=== PATIENT | male | born 1960 | race Caucasian/White ===

== ENCOUNTER 2018-06-30 16:17 | Emergency (ER) | payer MEDICAID, OTHER ==
[2018-06-30] MEDS ORDERED: fentaNYL 100 MCG/2 ML SDV IM ONE (16:36)
--- NOTE | 2018-06-30 16:42 | EDM.PDOC ---
ED HPI GENERAL MEDICAL PROBLEM - General Chief Complaint: Lower Extremity Injury/Pain Stated Complaint: FELL OFF THE ROOF SHOVELING Time Seen by Provider: 06/30/18 16:33 Source of Information: Reports: Patient, Family, RN Notes Reviewed History Limitations: Reports: No Limitations - History of Present Illness INITIAL COMMENTS - FREE TEXT/NARRATIVE: 57-year-old gentleman presents emergency department today after a fall this was at home estimate 10 foot landed on concrete happened about 2 hours prior he landed on his feet he is complaining of right ankle pain he cannot bear weight no other complaints at this time Right Wrist Pain Score (Numeric/FACES): 5 - Related Data Allergies Allergy/AdvReac Type Severity Reaction Status Date / Time venom-honey bee Allergy UNKNOWN Verified 06/30/18 16:23 [bee venom (honey bee)] Home Meds: Home Meds FLUoxetine HCl [Fluoxetine] 40 mg PO DAILY 06/30/18 [History] Past Medical History HEENT History: Reports: Impaired Vision Psychiatric History: Reports: Depression - Infectious Disease History Infectious Disease History: Reports: Chicken Pox, Measles, Mumps - Past Surgical History Head Surgeries/Procedures: Reports: None HEENT Surgical History: Reports: None Musculoskeletal Surgical History: Reports: Other (See Below) Other Musculoskeletal Surgeries/Procedures:: rt thumb surgery and left foot Social & Family History - Tobacco Use Smoking Status *Q: Never Smoker Second Hand Smoke Exposure: No - Caffeine Use Caffeine Use: Reports: Coffee - Recreational Drug Use Recreational Drug Use: No Review of Systems - Review of Systems Review Of Systems: See Below Musculoskeletal: Reports: Joint Pain (Ankle pain) Skin: Reports: No Symptoms Neurological: Reports: No Symptoms ED EXAM, GENERAL - Physical Exam Exam: See Below Free Text/Narrative:: Examination of the right ankle I do appreciate a deformity there is some edema noted as well he is exquisitely tender to touch in this area is no tenderness at the knee no tenderness at the hip pedal pulse is +2 he has limited range of motion digits secondary to pain sensation is intact Exam Limited By: No Limitations General Appearance: Alert, WD/WN, No Apparent Distress Respiratory/Chest: No Respiratory Distress Course - Vital Signs Last Recorded V/S: Last Vital Signs Temp 98.2 F 06/30/18 16:23 Pulse 68 06/30/18 16:23 Resp 16 06/30/18 16:23 BP 111/63 06/30/18 16:23 Pulse Ox 97 06/30/18 16:23 - Orders/Labs/Meds Orders: Active Orders 24 hr Category Date Time Status Ankle Min 3V Rt [CR] Stat Exams 06/30/18 16:36 Taken Meds: Medications Discontinued Medications Generic Name Dose Route Start Last Admin Trade Name Ángel PRN Reason Stop Dose Admin Fentanyl 50 mcg 06/30/18 16:36 06/30/18 16:42 Sublimaze IM 06/30/18 16:37 50 mcg ONETIME ONE Administration Departure - Departure Time of Disposition: 17:21 Disposition: Home, Self-Care 01 Condition: Fair Clinical Impression: Right calcaneal fracture Qualifiers: Encounter type: initial encounter Calcaneus location: unspecified portion of calcaneus Fracture type: closed Fracture alignment: nondisplaced Qualified Code( s): S92.001A - Unspecified fracture of right calcaneus, initial encounter for closed fracture - Discharge Information Referrals: Lance Helms [facility] [Primary Care Provider] - Forms: ED Department Discharge Additional Instructions: Please remain in the boot and crutches nonweightbearing, use hydrocodone as needed for pain control, please follow-up with orthopedics - My Orders Last 24 Hours: My Active Orders 06/30/18 16:36 Ankle Min 3V Rt [CR] Stat - Assessment/Plan Last 24 Hours: My Active Orders 06/30/18 16:36 Ankle Min 3V Rt [CR] Stat Plan: Assessment Acuity = acute Site and laterality = right calcaneus fracture Etiology = secondary to fall 10 feet Manifestations = none Location of injury = Home Lab values = radiology read suspicious for calcaneus fracture Plan he is placed in a walking boot and crutches with an appointment with orthopedics the next couple days, hydrocodone 5/325 one tab by mouth every 6 hours when necessary for pain total #10 This note was dictated using [employer] voice recognition software please call with any questions on syntax or grammar.
--- NOTE | 2018-07-03 14:43 | CRLCR ---
Final Report: Indication: Fall. Pain. Technique: Three views of the right ankle were obtained. Comparison: None Findings: A suspected calcaneal fracture is identified. A plantar calcaneal spur is identified. Ankle mortise intact. Talar dome is intact. Impression: Suspected calcaneal fracture. Dictated by Radha Jensen MD @ Jun 30 2018 5:11PM (Electronic Signature) MTDD
== END 2018-06-30 17:47 | disposition home or self-care (01) ==
LOC: JP.ED 16:17
DX: S92.001A Unspecified fracture of right calcaneus, initial encounter for closed fracture (principal); F32.9 Major depressive disorder, single episode, unspecified; Z91.030 Bee allergy status; Z79.899 Other long term (current) drug therapy; W17.89XA Other fall from one level to another, initial encounter
CPT/HCPCS: 73610; 96372; 99284; J3010

== ENCOUNTER 2018-07-13 08:48 | Day surgery (SDC) | payer MEDICAID ==
[2018-07-13] MEDS ORDERED: ceFAZolin 1 GM in Premix Bag 1 BAG IV ONE (09:30)
[2018-07-13] MEDS ORDERED: ceFAZolin 1 GM Vial IM ONE (09:30)
[2018-07-13] MEDS ORDERED: Sodium Chloride 0.9% 1,000 ML IV SCH (09:45)
[2018-07-13] MEDS ORDERED: Bupivacaine 0.5% 30 ML SDV ONE (11:34)
[2018-07-13] MEDS ORDERED: fentaNYL 250 MCG/5 ML SDV ONE (12:00)
[2018-07-13] MEDS ORDERED: Succinylcholine 200 MG/10 ML MDV ONE (12:01)
[2018-07-13] MEDS ORDERED: Propofol 200 MG/20 ML SDV ONE (12:01)
[2018-07-13] MEDS ORDERED: Dexamethasone 4 MG/ML SDV ONE (12:01)
[2018-07-13] MEDS ORDERED: Glycopyrrolate 0.2 MG/ML 5 ML MDV ONE (12:01)
[2018-07-13] MEDS ORDERED: Neostigmine Methylsulfate 1 MG/ML 5 ML Syringe ONE (12:01)
[2018-07-13] MEDS ORDERED: Ondansetron 4 MG/2 ML SDV ONE (12:01)
[2018-07-13] MEDS ORDERED: Rocuronium 50 MG/5 ML Vial ONE (12:01)
[2018-07-13] MEDS ORDERED: fentaNYL 100 MCG/2 ML SDV ONE (13:00)
[2018-07-13] MEDS ORDERED: Morphine 2 MG/ML Syringe IVPUSH ONE (14:31)
[2018-07-13] MEDS ORDERED: Acetaminophen/oxyCODONE 325-5 MG Tab PO PRN (15:06)
--- NOTE | 2018-07-23 09:58 | PCM.OPNOTE ---
- General Post-Op/Procedure Note Date of Surgery/Procedure: 07/13/18 Operative Procedure(s): Open reduction and internal fixation right calcaneus Findings: Comminuted, displaced, intra-articular right calcaneus fracture Pre Op Diagnosis: Comminuted , displaced right calcaneus fracture Post-Op Diagnosis: Same Anesthesia Technique: General ET Tube Primary Surgeon: Bartolome HUGHES in mLs: 20 Complications: None Condition: Good Free Text/Narrative:: Indications: Mr. Chavarria is a 57-year-old gentleman who sustained an injury to his left foot in a fall from his roof. X-rays and CT scan reveal a displaced intra- articular fracture of the right calcaneus. This was approximately 2 weeks ago. He has been working on elevation to minimize swelling. Now presents for open reduction and internal fixation. Swelling is down considerably and skin is in good condition for surgery. Risks, benefits and potential complications of the procedure were discussed and he agrees to proceed. Procedure: After adequate anesthesia was obtained patient was placed supine with a bump under the right hip. The right foot and leg were prepped and draped in a sterile fashion. Leg was exsanguinated and tourniquet inflated to 250 mg of mercury pressure. Incision was made over the lateral aspect of the foot starting above the medial malleolus just anterior to the Achilles tendon. This was carried straight distally to just above the heel pad and curved along the line of the heel pad anteriorly. With minimal manipulation of the skin full- thickness flap was then created down to the calcaneus. Standard approximately taking care to avoid the sural nerve. Section carried out over the fracture to the subtalar joint. A K wire was then placed up into the fibula and used to retract the flap to minimize handling. A second K wire was drilled into the talus and also used for retraction more anteriorly. A Schanz screw was placed into the calcaneus and the main body of the tuberosity. This was used to manipulate the fracture and start length. The lateral calcaneal wall fragment was removed and placed on the back table. This allowed access to the articular surface. Relating the main body fragment with the Schanz screw and a [place] elevator was placed into the fracture and used 2 maneuver the fragments into position restoring the medial wall. The lateral fragment was then cleared of hematoma and reduced into position. This was held temporarily with a K wire. A 4.0 screw was then placed over drilling the near cortex to provide lag compression across the articular surface. Reduction of the articular surface was confirmed by palpation with a [place]. A Synthes calcaneal specialty plate was then selected. It was positioned over the lateral aspect and position confirmed using C-arm. This was temporarily held with a threaded pin. Additional fixation was then obtained with screws through the plate. These were placed in compression fashion with excellent purchase. Final position of the screws was evaluated with C-arm. One screw was proud medially and this was replaced with a shorter screw through a different screw hole in the plate. Final position was again confirmed. Wound was then irrigated. 0 Vicryl sutures on pop-off needles were then used, placing multiple sutures through the periosteal tissue of the flap. Once all sutures had been placed these were then tied down in succession. Sutures were cut. Skin was then closed with 2-0 Vicryl and 3-0 nylon was used in mattress fashion for the skin. A well-padded AO plaster splint was then applied with the foot in neutral position. The patient tolerated the procedure well and there were no complications was taken from the operating room in stable condition.
== END 2018-07-13 16:45 | disposition home or self-care (01) ==
LOC: JP.SDS 08:48
PROVIDERS: ATTEND Specialist
DX: S92.061A Displaced intraarticular fracture of right calcaneus, initial encounter for closed fracture (principal); W13.2XXA Fall from, out of or through roof, initial encounter; Z91.030 Bee allergy status
CPT/HCPCS: 28415; 36415; 80053; 85027; A9270; C1713; C1776; J0690; J1100; J2270; J2405; J2704; J2710; J3010; J3490; J7030; J0330

== ENCOUNTER 2019-06-23 07:24 | Day surgery (SDC) | payer MEDICAID ==
[2019-06-23] MEDS ORDERED: Lactated Ringers 1,000 ML IV SCH (07:45)
[2019-06-23] MEDS ORDERED: Nozin Nasal Sanitizer NASBOTH ONE (07:45)
[2019-06-23] MEDS ORDERED: ceFAZolin 2 GM in Premix Bag 1 BAG IV ONE (08:00)
[2019-06-23] MEDS ORDERED: fentaNYL 250 MCG/5 ML SDV ONE (10:27)
[2019-06-23] MEDS ORDERED: Rocuronium 50 MG/5 ML Vial ONE (10:27)
[2019-06-23] MEDS ORDERED: Neostigmine Methylsulfate 1 MG/ML 5 ML Syringe ONE (10:27)
[2019-06-23] MEDS ORDERED: Dexamethasone 4 MG/ML SDV ONE (10:27)
[2019-06-23] MEDS ORDERED: Glycopyrrolate 0.2 MG/ML 5 ML MDV ONE (10:27)
[2019-06-23] MEDS ORDERED: Ondansetron 4 MG/2 ML SDV ONE (10:27)
[2019-06-23] MEDS ORDERED: Propofol 200 MG/20 ML SDV ONE (10:27)
[2019-06-23] MEDS: Bupivacaine 0.5% 50 ML MDV ONE ×2 (11:37→12:17)
[2019-06-23] MEDS ORDERED: Lactated Ringers 1,000 ML ONE (12:09)
--- NOTE | 2019-06-23 12:38 | CR ---
Fluoro Up To 1Hr CLINICAL HISTORY: Hardware removal FINDINGS: 3 fluoroscopic spot film images were obtained in the or for the use of the surgeon IMPRESSION: C-arm images as above
[2019-06-23] MEDS ORDERED: Ketorolac 60 MG/2 ML SDV IM ONE (12:44)
[2019-06-23] MEDS ORDERED: Morphine 2 MG/ML Syringe IVPUSH ONE (12:45)
[2019-06-23] MEDS ORDERED: Acetaminophen/oxyCODONE 325-5 MG Tab PO PRN (13:24)
--- NOTE | 2019-07-05 21:48 | OR ---
DATE OF PROCEDURE: 06/23/2019 SURGEON: Bartolome Markham MD PREOPERATIVE DIAGNOSES: 1. Painful retained hardware, right foot. 2. Posttraumatic arthritis, subtalar joint, right foot. POSTOPERATIVE DIAGNOSES: 1. Painful retained hardware, right foot. 2. Posttraumatic arthritis, subtalar joint, right foot. PROCEDURE: Removal of hardware, right calcaneus and arthrodesis, subtalar joint. ANESTHESIA: General. INDICATIONS: Geovani is a 58-year-old gentleman who sustained an intra-articular fracture of the right calcaneus approximately 1 year ago. He underwent open reduction and internal fixation. He went on to the heal the fracture, but has developed persistent pain and evidence of posttraumatic collapse of the subtalar joint, particularly posteriorly. He now presents for removal of hardware and subtalar fusion. Risks, benefits and potential complications of the procedure were discussed. DESCRIPTION OF PROCEDURE: After adequate anesthesia was obtained, patient placed in the lateral decubitus position and secured with a miller bag positioner. All bony prominences were well padded. The right leg was then prepped and draped in a sterile fashion with a tourniquet about the upper thigh. Leg was exsanguinated and tourniquet inflated to 300 mmHg pressure. Previous incision was utilized in the lateral aspect of the hindfoot, carried down full thickness to the bone and elevated as a full-thickness flap over the calcaneus. Elevator used to expose the hardware. The screws and plate were then removed without difficulty. Two K-wires were placed into the talus and used as retractors to avoid excessive trauma to the skin flap. Subtalar joint was identified, which did show fairly significant collapse predominantly posteriorly. Using a combination of curette and osteotome, the remaining articular cartilage was removed and subchondral bone was exposed. This was irrigated removing all articular fragments. Bone surfaces were then cross-hatched with an osteotome for better bleeding surfaces and increased surface area. The joint was then compressed and evaluated using fluoroscopy. A small stab incision was made in the posterior aspect of the heel. A guide pin was then placed under fluoroscopic guidance through the tuberosity of the calcaneus and up into the talar neck. Position was confirmed on AP and lateral images. This was measured and then drilled. A 6.5 mm cannulated partially threaded screw was then placed over the guidewire compressing the subtalar joint. Final position was confirmed using fluoroscopy. Crushed cancellous allograft was then packed around the joint. Wound was irrigated and then closed in layers with 0 Vicryl in the deep layer, 2-0 Vicryl and a running 3-0 Monocryl. Steri-Strips were applied. A slight compressive dressing was then applied with a posterior splint fiberglass. The patient tolerated the procedure very well. There were no complications. He was taken from the operating room in a stable condition. Bartolome Markham MD /[id number]
== END 2019-06-23 15:12 | disposition home or self-care (01) ==
LOC: JP.SDS 07:24
PROVIDERS: ATTEND Specialist
DX: T84.84XA Pain due to internal orthopedic prosthetic devices, implants and grafts, initial encounter (principal); M19.171 Post-traumatic osteoarthritis, right ankle and foot; Y83.1 Surgical operation with implant of artificial internal device as the cause of abnormal reaction of the patient, or of later complication, without mention of misadventure at the time of the procedure; Z91.030 Bee allergy status
CPT/HCPCS: 36415; 76000; 76000-26; 80048; 85027; A9270-GY; C1713; J0690; J1100; J1885; J2270; J2405; J2704; J2710; J3010; J3490; J7120